=== PATIENT | female | born 1990 | race Caucasian/White ===

== ENCOUNTER → 2016-11-08 | Outpatient (CLI) | payer OTHER ==
--- NOTE | 2016-11-08 10:06 | US ---
Left Breast Ultrasound (complete) History: Tenderness in the upper outer left breast and axillary area, cyclic in nature Technique: I first performed a directed physical examination. This was followed by ultrasound exam with a high frequency linear transducer. Personal: None Findings: Physical examination of the upper outer breast and axilla are negative. Ultrasound is negat qian. There is dense breast parenchyma. There are 2 tiny cysts scattered in the quadrant. No abnormal lymph nodes are identified in the left axilla. Impression: Negative physical examination and ultrasound. Recommendation: The patient was counseled about possibly removing her nipple jewelry, decreasing caff eine and THC intake and considering Tylenol, Advil or aspirin therapy. I mentioned that the patient s hould return to her physician if symptoms increase. The patient's breast symptoms should be treated s ymptomatically. BI-RADS 1. Negative.
== END ==
LOC: FIMAGING 08:39
PROVIDERS: ATTEND Advanced Practice Midwife
DX: Z12.39 Encounter for other screening for malignant neoplasm of breast (principal); N64.4 Mastodynia